=== PATIENT | female | born 1980 | race Caucasian/White ===

== ENCOUNTER 2019-03-19 20:32 | Emergency (ER) | payer SELFPAY ==
--- NOTE | 2019-03-19 21:01 | ED Physician Documentation ---
PD HPI ABD PAIN - Stated complaint Stated Complaint: ABD PX/VOM - Chief complaint Chief Complaint: Abd Pain - History obtained from History obtained from: Patient - History of Present Illness Timing - onset: How many days ago (2) Timing - duration: Days (2) Timing - details: Gradual onset, Still present Quality: Cramping, Aching, Pain Location: RLQ Improved by: Position. No: Eating Worsened by: Position, Palpation. No: Eating, Breathing Associated symptoms: Nausea, Loss of appetite. No: Fever, Vomiting, Diarrhea, Dysuria Similar symptoms before: Diagnosis (ovarian cysts. No history of kidney stones. Not sure is she has had her appendix out she thinks it might have been when she had cyst removed in 1996.) Recently seen: Clinic (urgent care yesterday, prior to traveling back home here. States was told her WBCs were elevated. She hadto get to airport so did not go to ER there. Got Rx for some pain meds.) Review of Systems Constitutional: reports: Chills, Myalgias. denies: Fever Nose: denies: Rhinorrhea / runny nose, Congestion Throat: denies: Sore throat Respiratory: denies: Cough GI: reports: Abdominal Pain, Nausea. denies: Abdominal Swelling, Vomiting, Constipation, Diarrhea, Bloody / black stool : denies: Dysuria, Frequency, Discharge, Irregular menses Skin: denies: Rash, Lesions PD PAST MEDICAL HISTORY - Past Medical History Cardiovascular: None Respiratory: None Neuro: None Endocrine/Autoimmune: None MANAGER JAVA: Ovarian cysts : None - Past Surgical History /MANAGER JAVA: Other (cyst removal 1996) - Present Medications Home Medications: Ambulatory Orders Medication Instructions Recorded Confirmed Hydrocodone/Acetaminophen [[place] 1 each PO Q6H PRN #15 tablet 03/19/19 5-325 Tablet] Ondansetron Odt [Zofran] 4 mg TL Q6H PRN #10 tablet 03/19/19 dexAMETHasone [Decadron] 4 mg PO DAILY #5 tablet 03/19/19 - Allergies Allergies/Adverse Reactions: Allergies Allergy/AdvReac Type Severity Reaction Status Date / Time NSAIDS (Non-Steroidal Allergy Anaphylaxis Verified 03/19/19 20:40 Anti-Inflamma Sulfa (Sulfonamide Allergy Hives Verified 03/19/19 20:40 Antibiotics) PD ED PE NORMAL - Vitals Vital signs reviewed: Yes - General General: Alert and oriented X 3, Well developed/nourished, Other (appears in pain, holding RLQ area of abdomen) - HEENT HEENT: Pharynx benign - Neck Neck: Supple, no meningeal sign, No adenopathy - Cardiac Cardiac: RRR, No murmur - Respiratory Respiratory: Clear bilaterally - Abdomen Abdomen: Soft, Non distended, No organomegaly, Other (Right lower quadrant abdomen is tender with local guarding and some percussion tenderness. There is mild rebound. There is no referred tenderness from nurse of the abdomen. There is no CVA tenderness. Pelvic exam was deferred.). No: Normal bowel sounds (diminished) - Female Female : Deferred - Rectal Rectal: Deferred - Back Back: No CVA TTP - Derm Derm: Normal color, Warm and dry, No rash - Neuro Neuro: Alert and oriented X 3, No motor deficit, Normal speech - Psych Psych: Normal mood, Normal affect Results - Vitals Vitals: Vital Signs - 24 hr 03/19/19 03/19/19 03/19/19 20:40 22:16 23:41 Temperature 36.6 C Heart Rate 116 H 107 H 91 Respiratory 16 16 16 Rate Blood Pressure 154/118 H 166/102 H 157/104 H O2 Saturation 98 98 97 Oxygen O2 Source Room air - Labs Labs: Laboratory Tests 03/19/19 03/19/19 03/19/19 20:53 21:20 21:20 WBC 7.5 RBC 4.09 L Hgb 10.6 L Hct 33.3 L MCV 81.4 MCH 25.9 L MCHC 31.8 L RDW 16.6 H Plt Count 337 MPV 9.2 Neut # (Auto) 5.0 Lymph # (Auto) 1.8 [place] # (Auto) 0.6 Eos # (Auto) 0.1 Baso # (Auto) 0.0 Absolute Nucleated RBC 0.00 Nucleated RBC % 0.0 Sodium 137 Potassium 4.2 Chloride 103 Carbon Dioxide 22 Anion Gap 12.0 BUN 9 Creatinine 1.0 Estimated GFR (MDRD) 63 L Glucose 278 H Calcium 9.2 Total Bilirubin 0.4 AST 31 ALT 43 Alkaline Phosphatase 79 Total Protein 7.2 Albumin 3.7 Globulin 3.5 Albumin/Globulin Ratio 1.1 Lipase 29 Urine Color LT RED Urine Clarity HAZY Urine pH 5.5 Ur Specific [place] 1.010 Urine Protein NEGATIVE Urine Glucose (UA) >=1000 H Urine Ketones NEGATIVE Urine Occult Blood LARGE H Urine Nitrite NEGATIVE Urine Bilirubin NEGATIVE Urine Urobilinogen 0.2 (NORMAL) Ur Leukocyte Esterase NEGATIVE Urine RBC TNTC H Urine WBC 0-3 Ur Squamous Epith Cells FEW Squamous Urine Bacteria None Seen Ur Microscopic Review INDICATED Urine Culture Comments NOT INDICATED Urine HCG, Qual NEGATIVE - Rads (name of study) abd/pelvic CT Radiology: Prelim report reviewed (post appendectomy. No acute process identified. ), EMP read contemporaneously, See rad report PD MEDICAL DECISION MAKING - ED course Complexity details: reviewed results (Her labs and CT scan do not show any acute process. She is post appendectomy. Consider the possibility of some adhesion type pains. There may be some ovarian pain. I think the results would have discovered any significant process. The patient seems stable to be able to treat with anti-inflammatories and pain medicine at home at this point.), re- evaluated patient (improved with IV meds; still some pain), considered differential (Consider appendicitis versus ovarian cyst or torsion or abscess. Also consider kidney stone. Diverticulitis. Will get labs and CT scan.), d/w patient Departure - Departure Disposition: Home, Self Care Clinical Impression: Right lower quadrant abdominal pain Condition: Stable Record reviewed to determine appropriate education?: Yes Health Concerns: new RLQ abdominal pain Plan of Treatment: NSAIDs, pain meds, stool softener. Recheck PMD if not better 2 days. Care Goals: resolution of pain Assessment: Unclear cause of the pain. No serious cause identified. Instructions: ED Abdominal Pain Unkn Cause Prescriptions: dexAMETHasone [Decadron] 4 mg PO DAILY #5 tablet Hydrocodone/Acetaminophen [[place] 5-325 Tablet] 1 each PO Q6H PRN #15 tablet PRN Reason: Pain Ondansetron Odt [Zofran] 4 mg TL Q6H PRN #10 tablet PRN Reason: Nausea / Vomiting Comments: Your blood tests urine test and CT scan do not show an obvious cause for the pain. There could potentially be some inflammation related to prior's car tissue or adhesions. There could be some ovarian pain without cyst. Use some anti-inflammatory such as Decadron steroid (into her allergic to NSAIDs). Ondansetron if needed for nausea. Add Tylenol or hydrocodone if needed for pain. Use a mild stool softener such as docusate daily. Recheck if not improved over the next 2 to 3 days and return sooner if worsening or other symptoms with it. Discharge Date/Time: 03/20/19 00:03
[2019-03-19 21:04] LABS: BILIRUBIN,URINE NEGATIVE (NEGATIVE); GLUCOSE, URINE (UA) >=1000 mg/dL (NEGATIVE); KETONES,URINE (UA) NEGATIVE (NEGATIVE); LEUKOCYTE ESTERASE, URINE NEGATIVE (NEGATIVE); NITRITE,URINE NEGATIVE (NEGATIVE); OCCULT BLOOD,URINE LARGE (NEGATIVE); PH,URINE 5.5 PH (5.0-7.5); PROTEIN,URINE NEGATIVE (NEGATIVE); UROBILINOGEN,URINE 0.2 (NORMAL) E.U./dL (NORMAL)
[2019-03-19 21:05] LABS: CLARITY,URINE HAZY (CLEAR)
[2019-03-19 21:07] LABS: HCG UR QUAL NEGATIVE
[2019-03-19] MEDS ORDERED: SODIUM CHLORIDE 0.9% 1,000 ML IV ONE (21:14)
[2019-03-19] MEDS ORDERED: ONDANSETRON 4 MG/2 ML VIAL IVP STA (21:14)
[2019-03-19] MEDS ORDERED: HYDROmorphone 1 MG/ML CARPUJECT IVP STA ×2 (21:14→22:51)
[2019-03-19 21:24] LABS: BASOPHILS % (AUTO) 0.4 %; EOSINOPHILS # (AUTO) 0.1 10^3/uL (0.0-0.7); EOSINOPHILS % (AUTO) 0.7 %; HGB - HEMOGLOBIN 10.6 g/dL (12.0-16.0); LYMPHOCYTES # (AUTO) 1.8 10^3/uL (1.5-3.5); LYMPHOCYTES % (AUTO) 23.8 %; MEAN CORPUSCULAR HEMOGLOBIN 25.9 pg (27.0-31.0); MEAN CORPUSCULAR HGB CONC 31.8 g/dL (32.0-36.0); MEAN CORPUSCULAR VOLUME 81.4 fL (81.0-99.0); MEAN PLATELET VOLUME 9.2 fL (7.9-10.8); MONOCYTES # (AUTO) 0.6 10^3/uL (0.0-1.0); MONOCYTES % (AUTO) 8.2 %; NEUTROPHILS % (AUTO) 66.6 %; PLT - PLATELET COUNT 337 10^3/uL (130-450); RED BLOOD COUNT 4.09 10^6/uL (4.20-5.40); RED CELL DISTRIBUTION WIDTH 16.6 % (12.0-15.0); WHITE BLOOD COUNT 7.5 x10^3/uL (4.8-10.8)
[2019-03-19 21:25] LABS: BACTERIA,URINE None Seen /HPF (None Seen); RBC,URINE TNTC /HPF (0-5); SQUAMOUS EPITHELIAL CELL,UR FEW Squamous (<= Few)
[2019-03-19 21:37] LABS: ALBUMIN 3.7 g/dL (3.2-5.5); ALBUMIN/GLOBULIN RATIO 1.1 (1.0-2.2); BILIRUBIN,TOTAL 0.4 mg/dL (0.2-1.0); CALCIUM 9.2 mg/dL (8.5-10.3); TOTAL PROTEIN 7.2 g/dL (6.7-8.2)
[2019-03-19] MEDS ORDERED: IOVERSOL 320 100 ML VIAL IVP ONE ×2 (21:52→22:46)
[2019-03-19] MEDS ORDERED: diphenhydrAMINE INJ 50 MG/ML VIAL IVP STA (22:15)
[2019-03-19] MEDS ORDERED: diphenhydrAMINE INJ 50 MG/ML VIAL ONE (22:21)
--- NOTE | 2019-03-19 22:43 | CT Report ---
Reason: RLQ pain since last evening; worsening Procedure Date: 03/19/2019 Accession Number: [id number] / [id number] Procedure: CT - Abdomen/Pelvis W CPT Code: FULL RESULT: EXAM: CT ABDOMEN AND PELVIS EXAM DATE: 03/19/2019 10:19 PM. CLINICAL HISTORY: RLQ pain since last evening; worsening. COMPARISONS: None. TECHNIQUE: Routine helical CT imaging was performed through the abdomen and pelvis. IV contrast: 100 ML OPTIRAY 320. Enteric contrast: No. Reconstructions: Coronal and sagittal. In accordance with CT protocol optimization, one or more of the following dose reduction techniques were utilized for this exam: automated exposure control, adjustment of mA and/or KV based on patient size, or use of iterative reconstructive technique. FINDINGS: ABDOMEN: Lung Bases: Incompletely included lower lungs are grossly clear. Heart size is within normal limits. No basilar effusions. Liver: Diffuse hepatic steatosis. Spleen: Unremarkable. Pancreas: Unremarkable. Gallbladder/Bile Ducts: Gallbladder is unremarkable. Biliary tree is normal caliber. Adrenal Glands: Unremarkable. Kidneys: No mass, calculi, or hydronephrosis. Peritoneum/Mesentery/Bowel: No free fluid, free air, or collection. No intestinal obstruction or inflammation. Status post appendectomy. Lymph nodes: No mesenteric, periportal, or retroperitoneal lymphadenopathy. Vasculature: Abdominal aorta is nonaneurysmal. Portal vein is patent. Hepatic veins are patent. PELVIS: The bladder is unremarkable for the degree of distention. Uterus and ovaries are present. No obvious abnormal adnexal abnormalities. No pelvic lymphadenopathy. Bones: No suspicious osseous lesions. IMPRESSION: No acute abnormalities. [facility]
[2019-03-19] MEDS ORDERED: HYDROcod/ACET 5/325 Prepack 4 PO STA (23:32)
[2019-03-19] MEDS ORDERED: DEXAMETHASONE 10 MG/ML VIAL IVP STA (23:32)
[2019-03-19] MEDS ORDERED: ONDANSETRON ODT 4 MG Prepack 2 TL PRN (23:32)
[2019-03-19 23:42] VITALS: BP 157/104
== END 2019-03-20 00:03 | disposition home or self-care (01) ==
LOC: ED 20:32
DX: R10.31 Right lower quadrant pain (principal); R11.0 Nausea
CPT/HCPCS: 36415; 74177; 80053; 81001; 81025; 83690; 85025; 96361; 96374; 96375; 96376; 99283; J1170; J1200; Q9967; 81003; 87086